=== PATIENT | female | born 2000 | race Caucasian/White ===

== ENCOUNTER 2023-04-01 18:33 | Emergency (ER) | payer OTHER ==
[2023-04-01] MEDS ORDERED: Ketorolac Tromethamine 30 MG/ML VIAL ONE (19:04)
[2023-04-01] MEDS ORDERED: Acetaminophen 500 MG TAB ONE (19:04)
[2023-04-01 19:19] LABS: #Basophils 0.1 10x3/uL (0.0-0.2); #Eosinphils 0.2 10x3/uL (0.0-0.5); #Monocytes 0.6 10x3/uL (0.0-1.1); #Neutrophils 3.4 10x3/uL (1.5-8.4); %Basophils 0.9 % (0.0-2.0); %Eosinophils 2.9 % (0.0-6.0); %Lymphocytes 37.2 % (18.0-47.0); %Monocytes 9.3 % (0.0-10.0); %Neutrophils 49.4 % (40.0-75.0); Hematocrit 32.8 % (34.9-44.5); Hemoglobin 11.1 g/dL (12.0-15.5); Mean Corpuscular HGB CONC 33.8 g/dL (32.0-36.0); Mean Corpuscular Hemoglobin 25.8 pg (27.0-33.0); Mean Corpuscular Volume 76.1 fl (81.6-98.3); Mean Platelet Volume 9.3 fl (7.4-10.4); Platelet Count 569 10x3/uL (150-450); RBC Distribution Width 13.4 % (11.5-14.5); Red Blood Cell (RBC) Count 4.31 10x6/uL (3.90-5.03); White Blood Cell (WBC) Count 6.9 10x3/uL (3.5-10.5)
[2023-04-01 19:32] LABS: ALT (SGPT) 17 U/L (8-55); AST (SGOT) 16 U/L (5-34); Albumin 3.9 g/dL (3.5-5.0); Alkaline Phosphatase 80 U/L (40-110); Anion Gap 11 mmol/L (10-20); BUN (Urea Nitrogen) 13 mg/dL (7.0-18.7); Bilirubin, Total 0.2 mg/dL (0.2-1.2); Calc. Creatinine Clearance 0 mL/min (70-130); Calcium 9.1 mg/dL (7.8-10.44); Carbon Dioxide 24 mmol/L (22-29); Chloride 107 mmol/L (98-107); Estimated GFR 78; Globulin 3.3 g/dL (2.4-3.5); Glucose 77 mg/dL (70-105); Potassium 3.9 mmol/L (3.5-5.1); Protein, Total 7.2 g/dL (6.0-8.3); Sodium 138 mmol/L (136-145)
== END 2023-04-01 19:55 | disposition home or self-care (01) ==
LOC: CSHERS 18:33
DX: M79.661 Pain in right lower leg (principal); D64.9 Anemia, unspecified
CPT/HCPCS: 36415; 80053; 85025; 85379; 96372; J1885